=== PATIENT | male | born 1940 | race Caucasian/White ===

== ENCOUNTER 2017-02-26 11:00 | Emergency (ER) | payer OTHER ==
[~2017-02-26] VITALS: Ht 185.4 cm; Wt 111.1 kg
[2017-02-26] MEDS ORDERED: LISINOPRIL20 MG PO (11:25)
[2017-02-26] MEDS ORDERED: METOPROLOL SUCC50 MG (11:25)
[2017-02-26] MEDS ORDERED: GLYPIZIDE (11:27)
[2017-02-26] MEDS ORDERED: LIPITOR 20 MG T20 M1 PO (11:27)
[2017-02-26] MEDS ORDERED: HYDROCODONE-AP1 EAC6 PO (11:32)
[2017-02-26] MEDS ORDERED: NORFLEX100 MG PO (11:32)
[2017-02-26 11:41] VITALS: BP 157/95
== END 2017-02-26 11:48 | disposition home or self-care (01) ==
LOC: ER 11:00
DX: S50.02XA Contusion of left elbow, initial encounter (principal); S39.012A Strain of muscle, fascia and tendon of lower back, initial encounter; V49.9XXA Car occupant (driver) (passenger) injured in unspecified traffic accident, initial encounter; Y93.89 Activity, other specified; Y92.89 Other specified places as the place of occurrence of the external cause; Y99.8 Other external cause status; D17.79 Benign lipomatous neoplasm of other sites; E11.9 Type 2 diabetes mellitus without complications